=== PATIENT | male | born 1970 | race Caucasian/White ===

== ENCOUNTER 2024-10-18 19:51 | Emergency (ER) | payer OTHER ==
[~2024-10-18] VITALS: Ht 177.8 cm; Wt 164.4 kg
[2024-10-18 20:17] LABS: BASO # 0.1 10^3/uL (0.0-0.2); BASO % 0.4 % (0.0-1.0); EOS # 0.1 10^3/uL (0.0-0.5); EOS % 1.2 % (0.0-3.0); HEMATOCRIT 43.2 % (42.0-52.0); LYMPH # 1.5 10^3/uL (1.5-5.0); LYMPH % 13.2 % (24.0-44.0); MEAN CORPUSCULAR HEMOGLOBIN 28.3 pg (27.0-33.0); MEAN CORPUSCULAR HGB CONC 32.4 g/dl (32.0-36.5); MEAN CORPUSCULAR VOLUME 87.3 fl (80.0-96.0); MONO # 0.6 10^3/uL (0.0-0.8); MONO % 5.3 % (2.0-8.0); NEUTROPHILS # 9.2 10^3/uL (1.5-8.5); NEUTROPHILS % 79.4 % (36.0-66.0); PLATELET COUNT, AUTOMATED 287 10^3/uL (150-450); RED BLOOD COUNT 4.95 10^6/uL (4.30-6.10); WHITE BLOOD COUNT 11.6 10^3/uL (4.0-10.0)
[2024-10-18 20:41] LABS: BLOOD UREA NITROGEN 14 MG/DL (9-23); CARBON DIOXIDE LEVEL 26 MMOL/L (20-31); CHLORIDE LEVEL 102 MMOL/L (98-107); CREATININE FOR GFR 1.14 MG/DL (0.70-1.30); GLOMERULAR FILTRATION RATE > 60.0 (>56); GLUCOSE, FASTING 169 MG/DL (60-100); POTASSIUM SERUM 4.1 MMOL/L (3.5-5.1); SODIUM LEVEL 137 MMOL/L (136-145)
[2024-10-18 20:42] LABS: CPK CREATINE PHOSPHOKINASE 318 U/L (46-171); MB/CK RELATIVE INDEX 0.31 (< OR =4)
[2024-10-18] MEDS: MORPHINE 4 MG/ML 1ML VIAL IV PRN (20:59)
[2024-10-18] MEDS: ONDANSETRON 4MG 2ML VIAL IV ONE (21:00)
[2024-10-18] MEDS ORDERED: ISOVUE-370 76% 100ML VIAL As Ordered ONE (21:23)
[2024-10-18 21:54] LABS: CK-MB VALUE MASS < 1.0 NG/ML (<3.6)
[2024-10-18 21:56] LABS: CPK CREATINE PHOSPHOKINASE 315 U/L (46-171); MB/CK RELATIVE INDEX 0.31 (< OR =4)
[2024-10-18] MEDS: METHOCARBAMOL 1,000 MG/10 ML VIAL IV ONE (22:26)
[2024-10-18] MEDS: KETOROLAC 30 MG/ML 1ML VIAL IV ONE (22:27)
[2024-10-18] MEDS ORDERED: NAPR-837 PO (23:09)
[2024-10-18] MEDS ORDERED: METH-1165 PO (23:09)
[2024-10-18 23:28] VITALS: BP 148/89; TEMP 98.6; O2SAT 98
== END 2024-10-18 23:32 | disposition home or self-care (01) ==
LOC: M ED 19:51
DX: R07.9 Chest pain, unspecified (principal); M54.50 Low back pain, unspecified; I10 Essential (primary) hypertension; F17.200 Nicotine dependence, unspecified, uncomplicated; R00.0 Tachycardia, unspecified; I45.81 Long QT syndrome; Z91.048 Other nonmedicinal substance allergy status; Z79.1 Long term (current) use of non-steroidal anti-inflammatories (NSAID); Z79.899 Other long term (current) drug therapy
CPT/HCPCS: 71045; 71275; 80048; 82550; 82553; 84484; 85025; 93005; 93041; 94760; 96374; 96375; 99285; J1885; J2405; J2800; Q9967

== ENCOUNTER 2025-01-19 14:35 | Emergency (ER) | payer OTHER ==
[~2025-01-19 14:35] MED LIST: METH-1165 PO; NAPR-837 PO
[2025-01-19] MEDS: LORazepam 2 MG/ML 1ML VIAL IV STA (14:49)
[2025-01-19] MEDS ORDERED: D 50CAP2 (15:15)
[2025-01-19] MEDS ORDERED: ACET-683 PO (15:15)
[2025-01-19] MEDS ORDERED: LOSA50TA28 (15:15)
[2025-01-19] MEDS ORDERED: IBUP80TA (15:15)
[2025-01-19] MEDS ORDERED: METF-838 (15:15)
[2025-01-19] MEDS ORDERED: TIZA10TA (15:15)
[2025-01-19 15:28] LABS: BASO % 0.5 % (0.0-1.0); EOS # 0.1 10^3/uL (0.0-0.5); EOS % 1.1 % (0.0-3.0); HEMATOCRIT 43.1 % (42.0-52.0); HEMOGLOBIN 14.5 g/dl (13.5-17.5); LYMPH % 11.4 % (24.0-44.0); MEAN CORPUSCULAR HEMOGLOBIN 29.4 pg (27.0-33.0); MEAN CORPUSCULAR HGB CONC 33.6 g/dl (32.0-36.5); MEAN CORPUSCULAR VOLUME 87.2 fl (80.0-96.0); MONO # 0.6 10^3/uL (0.0-0.8); MONO % 7.3 % (2.0-8.0); NEUTROPHILS # 6.9 10^3/uL (1.5-8.5); NEUTROPHILS % 79.4 % (36.0-66.0); PLATELET COUNT, AUTOMATED 271 10^3/uL (150-450); RED BLOOD COUNT 4.94 10^6/uL (4.30-6.10); VENOUS HCO3 20.5 MMOL/L (23.0-27.0); VENOUS O2 SATURATION 91.5 % (60.0-80.0); VENOUS PARTIAL PRESSURE CO2 36.1 mmHg (38.0-50.0); VENOUS PARTIAL PRESSURE O2 59.9 mmHg (30.0-50.0); VENOUS PH 7.373 UNITS (7.330-7.430); VENOUS STANDARD HCO3 21.1 MMOL/L; VENOUS TOTAL CO2 21.7 MMOL/L (24.0-28.0); WHITE BLOOD COUNT 8.7 10^3/uL (4.0-10.0)
[2025-01-19 15:56] LABS: ALBUMIN 3.7 G/DL (3.2-5.2); ALKALINE PHOSPHATASE 42 U/L (40-129); ALT/SGPT 42 U/L (7.0-40); AST/SGOT 21 U/L (<34); BILIRUBIN,DIRECT 0.1 MG/DL (<0.4); BILIRUBIN,TOTAL 0.4 MG/DL (0.3-1.2); BLOOD UREA NITROGEN 15 MG/DL (9-23); CALCIUM LEVEL 8.9 MG/DL (8.5-10.1); CARBON DIOXIDE LEVEL 22 MMOL/L (20-31); CHLORIDE LEVEL 106 MMOL/L (98-107); CREATININE FOR GFR 1.06 MG/DL (0.70-1.30); GLOMERULAR FILTRATION RATE > 60.0 (>56); GLUCOSE, FASTING 103 MG/DL (60-100); POTASSIUM SERUM 3.8 MMOL/L (3.5-5.1); SODIUM LEVEL 141 MMOL/L (136-145); TOTAL PROTEIN 7.1 G/DL (5.7-8.2)
[2025-01-19 15:58] LABS: THYROXINE (T4) 8.2 UG/DL (4.5-10.9)
[2025-01-19] MEDS ORDERED: ISOVUE-370 76% 100ML VIAL As Ordered ONE (16:01)
[2025-01-19] MEDS: ALPRAZolam 0.5 MG TAB PO ONE (16:26)
[2025-01-19 17:01] LABS: AMPHETAMINES LEVEL URINE NEGATIVE (NEGATIVE); BARBITURATES URINE NEGATIVE (NEGATIVE); BENZODIAZEPINES URINE NEGATIVE (NEGATIVE); CANNABINOIDS URINE NEGATIVE (NEGATIVE); COCAINE METABOLITE URINE NEGATIVE (NEGATIVE); METHADONE URINE NEGATIVE (NEGATIVE); OPIATES URINE NEGATIVE (NEGATIVE); PHENCYCLIDINE URINE NEGATIVE (NEGATIVE)
[2025-01-19] MEDS ORDERED: XANA0.25 PO (17:39)
[2025-01-19 18:02] VITALS: BP 134/84; TEMP 97.8; O2SAT 97
== END 2025-01-19 18:00 | disposition home or self-care (01) ==
LOC: M ED 14:35 → EDBD 14:35 → M ED 18:00
DX: R06.00 Dyspnea, unspecified (principal); I10 Essential (primary) hypertension; R00.0 Tachycardia, unspecified; E11.9 Type 2 diabetes mellitus without complications; Z91.048 Other nonmedicinal substance allergy status; Z79.899 Other long term (current) drug therapy; Z79.4 Long term (current) use of insulin
CPT/HCPCS: 36415; 70450; 71045; 71275; 80048; 80076; 80307; 82803; 84436; 84443; 85025; 87486; 87581; 87633; 87798; 93005; 93041; 94760; 99285; Q9967